=== PATIENT | male | born 1965 | race Caucasian/White ===

== ENCOUNTER 2024-09-01 16:24 | Inpatient (IN) | payer SELFPAY ==
[2024-09-01] VITALS (26 sets, daily range): BP systolic 116–180; BP diastolic 79–110; PULSE 83–107; TEMP 37.6; O2SAT 96–99; BMI 48.8
[2024-09-01 17:28] LABS: Hematocrit 44.9 % (42.0-54.0); Hemoglobin 15.3 g/dL (14.0-18.0); Mean Corpuscular HGB Conc 34.1 g/dL (29.9-35.2); Mean Corpuscular Hemoglobin 30.2 pg (25.9-34.0); Mean Corpuscular Volume 88.6 fL (80.0-94.0); Mean Platelet Volume 8.7 fL (9.5-13.5); Platelet Count 313 10^3/uL (150-450); Red Blood Count 5.07 10^6/uL (4.70-6.10); Red Cell Distribution Width 12.9 % (11.0-15.0); White Blood Count 16.8 10^3/uL (4.0-11.0)
[2024-09-01 17:52] LABS: Lymphocytes Absolute Manual 3.36 10^3/uL (1.20-3.80); Segmented Neut Absolute Manual 12.43 10^3/uL (1.4-6.5)
[2024-09-01 17:54] LABS: Anion Gap 13.8; Carbon Dioxide 24.9 mmol/L (21.0-32.0); Chloride 96 mmol/L (98-107); Estimated GFR (African America >60 (>=60 mL/min/1.73m^2); Estimated GFR (Non-African Ame >60 (>=60 mL/min/1.73m^2); Glucose 116 mg/dL (74-106); Potassium 3.7 mmol/L (3.5-5.1); Sodium 131 mmol/L (136-145)
--- NOTE | 2024-09-01 17:59 | CT_ITS ---
The [address] [address] Patient Name: GEOVANY MONTANA MRN: [id number] date: 1965 Sex: M Assigned Patient Location: ER Current Patient Location: ED.MAIN Accession/Order Number: [id number] Exam Date: 09/01/2024 17:50 Report Date: 09/01/2024 19:57 At the request of: GIGI DELGADO Procedure: CT femur RT w con EXAM: CT femur RT w con HISTORY: abscess, cellulitis thigh COMPARISON: None. TECHNIQUE: Following the uneventful IV administration of nonionic contrast as per protocol institution, axial scans obtained from mid right iliac crest and SI joint through the right femur from hip to knee with coronal and sagittal reformatted images. Reviewed in bone and soft tissue windows. Dose reduction techniques were achieved by using automated exposure control and/or adjustment of mA and/or kV according to patient size and/or use of iterative reconstruction technique. CONTRAST: Omnipaque 300, 100 mL IV. FINDINGS: There is asymmetric skin thickening throughout the upper inner left thigh extending to the mid to distal aspect with underlying subcutaneous edema and inflammatory changes. This is seen at the proximal to distal third of left femur medially. Consistent with cellulitis. No underlying fluid collection or abscess. No gas or air in the soft tissues to suggest necrotizing infection. Correlate with exam. Remaining skin and subcutaneous tissues right pelvis to the knee are otherwise normal. Muscle signal compartments are normal. No enhancing mass. Adequate bone mineralization for age. No fractures. No destructive or lytic or blastic bone process or osteomyelitis. Mild age-related right hip osteoarthritis. No hip joint effusion. There is moderate to severe medial compartment osteoarthritis and joint space loss at knee. Mild degenerative lateral compartment narrowing with tricompartment osteophytes. Patellofemoral joint is preserved. No obvious joint effusion. No right inguinal adenopathy. Other than some colonic diverticulosis noted, imaged intrapelvic structures otherwise negative. CT/CT femur RT w con IMPRESSION: 1. Appearance consistent with cellulitis involving the medial left thigh tissues and skin beginning at the proximal third extending to distal third. 2. No abscess or osteomyelitis or gas within the tissues. Electronically authenticated by: YOEL GALLEGO Date: 09/01/2024 19:57
[2024-09-01] MEDS: HYDROMORPHONE HCL 0.5 MG/0.5 ML SYRINGE IV (18:02)
[2024-09-01] MEDS: LIDOCAINE HCL 1% 100 MG/10 ML MDV INJ (18:02)
[2024-09-01] MEDS: VANCOMYCIN HCL 2,000 MG in 0.9 % SODIUM CHLORIDE 500 ML 250 MG IV (18:14)
--- NOTE | 2024-09-01 20:18 | ED_ITS ---
HPI HPI - General Adult General Chief complaint: Skin/Abscess/Foreign Body Stated complaint: LUMP Time Seen by Provider: 09/01/24 17:06 Source: patient Mode of arrival: walk-in Limitations: no limitations History of Present Illness HPI narrative: 59-year-old male presents to the emergency department with complaint of pain, redness, swelling to the inside of his right thigh. About a month ago, he had a rash to his knee, lower leg, had been on doxycycline for 10 days. This seemed to improve, but then 4 days after, large area of swelling began to the inside of his thigh. Was seen by urgent care yesterday, was told it was MRSA and started him on Bactrim. Today, pain, swelling, redness worse. Reports low-grade fevers. Denies history of diabetes. Has not noted any drainage from the area. Quality:?as above Severity:?moderate Timing:?as above, constant, worsening Context: Normal setting and activity? Modifying factors:?not better despite home meds. Pain worse with palpation Associated symptoms: as above Related Data Home Medications ?Medication ?Instructions ?Recorded ?Confirmed No Known Home Medications 09/01/24 09/01/24 Allergies Allergy/AdvReac Type Severity Reaction Status Date / Time No Known Drug Allergies Allergy Verified 09/01/24 17:34 Opioid HPI Opioid Management Most Recent Opioid Data: Last Pain Scale 8 09/01/24 18:02 09/01/24 Last MAR Pain Assessment 09/01/24 18:02 Review of Systems ROS Narrative CONST: + low grade fever, chills ENDOCRINE: Denies history of diabetes MS: Denies arthralgias, myalgias SKIN: + color change, swelling.? Denies any itching, drainage NEURO: Denies any numbness, tingling PFSH PFSH Social History Little interest or pleasure in doing things: not at all Feeling down, depressed, or hopeless: not at all Exam Narrative Exam Narrative: Vital signs reviewed Nurses notes noted CONST: Nontoxic, well appearing, well nourished, in no distress.? No diaphoresis.?? HENT: normocephalic, atraumatic, moist mucous membrane, no abnormalities of the nose noted, hearing normal EYES: normal appearing conjunctiva, no apparent discharge bilat NECK: normal appearance MS: no edema SKIN: + large area of erythema, swelling, with central induration, hot to touch. Erythema noted from mid thigh from upper to mid thigh and runs medial to posteriorly. No fluctuance, draining. There is a small hole in the central area of this without any purulent exudate contained within NEURO: A&Ox 3 PSYCH: normal mood, affect Constitutional Vital Signs, click to edit/add: Last Vital Signs Temp 99.6 F 09/01/24 16:30 Pulse 107 H 09/01/24 16:30 Resp 20 09/01/24 16:30 BP 153/84 H 09/01/24 19:00 Pulse Ox 98 09/01/24 16:30 O2 Del Method Room Air 09/01/24 16:30 Course Consultations Consultation #1: Patient discussed with KAYLEY Hyman who is agreeable with admission under Dr. Hartmann Time: 20:19 Vital Signs Vital signs: Vital Signs Temperature 99.6 F 09/01/24 16:30 Pulse Rate 107 H 09/01/24 16:30 Respiratory Rate 20 09/01/24 16:30 Blood Pressure 180/110 H 09/01/24 16:30 Pulse Oximetry 98 09/01/24 16:30 Oxygen Delivery Method Room Air 09/01/24 16:30 Temperature 99.6 F 09/01/24 16:30 Pulse Rate 107 H 09/01/24 16:30 Respiratory Rate 20 09/01/24 16:30 Blood Pressure 153/84 H 09/01/24 19:00 Pulse Oximetry 98 09/01/24 16:30 Oxygen Delivery Method Room Air 09/01/24 16:30 Medical Decision Making [facility] Narrative Medical decision making narrative: This is a pleasant 59-year-old male presented to the emergency department with complaint of redness, pain, swelling to the inside of his right thigh. He has been on doxycycline, Bactrim over time course. Despite this, symptoms continue to worsen. Has had low-grade fevers, chills. On arrival, febrile vital signs are stable. On exam, nontoxic, well-appearing patient in no distress. He had a large as large area of erythema from anterior to medial to posterior thigh with central area of induration. No fluctuance or pointing is noted. IV access established, bloods drawn. Patient started on vancomycin and later Zosyn. Labs reveal white blood cell count of 16,000. No anemia, thrombocytopenia, electrolyte imbalance, renal impairment. Glucose 116. CT imaging, per radiologist reveals cellulitis without evidence of abscess Favor cellulitis, leukocytosis Abscess, osteomyelitis less likely based on imaging History and record review Additional records reviewed: No prior records Next line management Independent interpretation: Imaging: CT right thigh reveals marbling of the inside soft tissue of the thigh consistent with cellulitis. No abscess noted reevaluation: Pain improved Disposition ? Plan: Patient will be admitted. Condition at time of disposition: stable ? PLEASE NOTE: Portions of the medical record may have been produced using electronic food storeroom clerk and may contain errors with respect to translation of words which may not have been identified prior to finalization of the chart. Medical Records Medical records reviewed: Yes I reviewed the patient's medical records Lab Data Lab results reviewed: Yes I reviewed the patient's lab results Labs: Lab Results 09/01/24 Range/Units 17:18 WBC 16.8 H (4.0-11.0) 10^3/uL RBC 5.07 (4.70-6.10) 10^6/uL Hgb 15.3 (14.0-18.0) g/dL Hct 44.9 (42.0-54.0) % MCV 88.6 (80.0-94.0) fL MCH 30.2 (25.9-34.0) pg MCHC 34.1 (29.9-35.2) g/dL RDW 12.9 (11.0-15.0) % Plt Count 313 (150-450) 10^3/uL MPV 8.7 L (9.5-13.5) fL Seg Neuts % (Manual) 74.0 (43.0-75.0) Lymphocytes % (Manual) 20.0 L (20.5-60.0) % Monocytes % (Manual) 6.0 (1.7-12.0) % Eosinophils % (Manual) 0.0 L (0.9-7.0) % Basophils % (Manual) 0.0 L (0.2-2.0) % Neutrophils # (Manual) 12.43 H (1.4-6.5) 10^3/uL Lymphocytes # (Manual) 3.36 (1.20-3.80) 10^3/uL Monocytes # (Manual) 1.00 H (0.30-0.80) 10^3/uL Eosinophils # (Manual) 0.00 (0.00-0.70) 10^3/uL Basophils # (Manual) 0.00 (0.00-0.10) 10^3/uL Sodium 131 L (136-145) mmol/L Potassium 3.7 (3.5-5.1) mmol/L Chloride 96 L (98-107) mmol/L Carbon Dioxide 24.9 (21.0-32.0) mmol/L Anion Gap 13.8 BUN 13.0 (7.0-18.0) mg/dL Creatinine 1.18 (0.70-1.30) mg/dL Est GFR ( Amer) >60 (>=60 mL/min/1.73m^2) Est GFR (Non-Af Amer) >60 (>=60 mL/min/1.73m^2) BUN/Creatinine Ratio 11.0 Glucose 116 H (74-106) mg/dL Calcium 9.0 (8.5-10.1) mg/dL Imaging Data CT right thihg: Radiologist's impression: ITS Impressions Femur CT 09/01/24 17:59 IMPRESSION: 1. Appearance consistent with cellulitis involving the medial left thigh tissues and skin beginning at the proximal third extending to distal third. 2. No abscess or osteomyelitis or gas within the tissues. Electronically authenticated by: YOEL GALLEGO Date: 09/01/2024 19:57 Discharge Plan Discharge Chief Complaint: Skin/Abscess/Foreign Body Clinical Impression: Acute pain of right thigh Cellulitis Qualifiers: Site of cellulitis: extremity Site of cellulitis of extremity: lower extremity Laterality: right Qualified Code(s): L03.115 - Cellulitis of right lower limb Leukocytosis Qualifiers: Leukocytosis type: unspecified Qualified Code(s): D72.829 - Elevated white blood cell count, unspecified Patient Disposition: Admitted as Observation Time of Disposition Decision: 20:15 Condition: Good
[2024-09-01] MEDS: PIPERACILLIN SODIUM/TAZOBACTAM 3.375 GM in 0.9 % SODIUM CHLORIDE 50 ML IV (21:52)
[2024-09-01] MEDS: OXYCODONE HCL/ACETAMINOPHEN 5MG/325MG 2 TAB PO (22:04)
[2024-09-02] VITALS (31 sets, daily range): BP systolic 114–140; BP diastolic 72–90; PULSE 73–100; TEMP 36.7–37.2; O2SAT 92–96; BMI 49.7
[2024-09-02] MEDS: PIPERACILLIN SODIUM/TAZOBACTAM 3.375 GM in 0.9 % SODIUM CHLORIDE 50 ML IV ×3 (04:02→19:51)
[2024-09-02 05:37] LABS: Basophils Absolute Auto 0.1 10^3/uL (0.0-0.1); Basophils Percent Auto 0.4 % (0.2-2.0); Eosinophils Absolute Auto 0.1 10^3/uL (0.0-0.7); Eosinophils Percent Auto 0.9 % (0.9-7.0); Hematocrit 42.1 % (42.0-54.0); Hemoglobin 14.1 g/dL (14.0-18.0); Immature Granulocytes Pct Auto 0.7 % (0.0-0.5); Lymphocytes Absolute Auto 2.3 10^3/uL (1.2-3.8); Lymphocytes Percent Auto 16.1 % (20.5-60.0); Mean Corpuscular HGB Conc 33.5 g/dL (29.9-35.2); Mean Corpuscular Hemoglobin 30.1 pg (25.9-34.0); Mean Platelet Volume 9.1 fL (9.5-13.5); Monocytes Absolute Auto 1.8 10^3/uL (0.3-0.8); Monocytes Percent Auto 12.4 % (1.7-12.0); Neutrophils Absolute Auto 9.8 10^3/uL (1.4-6.5); Neutrophils Percent Auto 69.5 % (43.0-75.0); Platelet Count 301 10^3/uL (150-450); Red Blood Count 4.68 10^6/uL (4.70-6.10); Red Cell Distribution Width 13.1 % (11.0-15.0); White Blood Count 14.1 10^3/uL (4.0-11.0)
[2024-09-02 06:03] LABS: Alanine Aminotransferase 29 U/L (16-63); Albumin Globulin Ratio 0.7; Albumin Level 3.1 g/dL (3.4-5.0); Alkaline Phosphatase 78 U/L (46-116); Anion Gap 11.9; Aspartate Amino Transferase 16 U/L (15-37); BUN Creatinine Ratio 11.6; Bilirubin Total 0.7 mg/dL (0.2-1.0); Calcium 8.7 mg/dL (8.5-10.1); Carbon Dioxide 28.3 mmol/L (21.0-32.0); Chloride 99 mmol/L (98-107); Estimated GFR (African America >60 (>=60 mL/min/1.73m^2); Estimated GFR (Non-African Ame >60 (>=60 mL/min/1.73m^2); Globulin 4.6 g/dL; Glucose 100 mg/dL (74-106); Magnesium 2.1 mg/dL (1.8-2.4); Potassium 4.2 mmol/L (3.5-5.1); Sodium 135 mmol/L (136-145); Total Protein 7.7 g/dL (6.4-8.2)
[2024-09-02] MEDS: VANCOMYCIN HCL 2,000 MG in 0.9 % SODIUM CHLORIDE 500 ML 250 MG IV ×2 (08:08→21:05)
[2024-09-02] MEDS: OXYCODONE HCL/ACETAMINOPHEN 5MG/325MG 2 TAB PO ×3 (08:14→19:51)
[2024-09-02] MEDS: ENOXAPARIN SODIUM 40 MG/0.4 ML SYRINGE SUBQ (11:02)
--- NOTE | 2024-09-02 11:55 | PM.HP ---
HPI H&P: HPI History of Present Illness Chief complaint: LUMP, CELLULITIS R THIGH LEUKOCYTOSIS Narrative: 59-year-old male presented to ED with left pain/erythema and tenderness of his right medical thigh. He reports he had small area of swelling/pain that opened up by itself with purulent discharge on his medial thigh. He saw urgent care for it and was prescribed oral Bactrim for it. But yesterday, his RLE blew up red with area of erythema/induration increased to about 8x8 inch. Patient reports that pain was so severe that he could hardly walk. He also reports subjective fevers/chills. Denies nausea, vomiting. Started on broad spectrum abx in ED. He is hemodynamically stable and feels that percocet is helping with pain. Opioid HPI Opioid Management Most Recent Pain and Opioid Data: Last Pain Scale 0 09/02/24 10:15 09/02/24 Last Pain Assessment 09/02/24 11:16 Last MAR Pain Assessment 09/02/24 08:14 Last ORT Total Score 6 09/02/24 11:16 09/02/24 Last ORT Risk Category Moderate Risk 09/02/24 11:16 09/02/24 Review of Systems ROS Status of ROS 10 or more systems reviewed and unremarkable except as noted in history and below PFSH PFSH Family History (Updated 09/02/24 @ 11:58 by Kae Bobby) Father Family history of COPD (chronic obstructive pulmonary disease) Social History (Updated 09/02/24 @ 11:55 by Shaikh Mary Kate MD) Within the past year, how often did you have a drink containing alcohol: never Within the past year, how many standard drinks containing alcohol did you have on a typical day: 1 or 2 Within the past year, how often did you have six or more drinks on one occasion: never Total score: 0 Score interpretation: A score less than 4 is consistent with normal alcohol consumption. Smoking status: Never smoker Non-prescribed substance use: denies use Previous occupational history: insurance case manager. Known occupational exposures/hazards: No Highest level of school completed/degree received: high school graduate Are you now , , , , never or living with a partner: In a typical week, how many times do you talk on the telephone with family, friends, or neighbors: 3 or more times per week How often do you get together with friends or relatives: 3 or more times per week How often do you attend latter day or restorationism services: never Do you belong to any clubs or organizations such as latter day groups unions, fraternal or athletic groups, or school groups: no Total score: 1 Score interpretation: A score of less than or equal to 1 indicates the most socially isolated. Little interest or pleasure in doing things: not at all Feeling down, depressed, or hopeless: not at all Feel stressed/tense/nervous/anxious/difficulty sleeping: not at all Due to disability, difficulty making decisions: No Do you think of yourself as: straight/heterosexual Gender Identity: male Meds Home Medications and Allergies Home Medications ?Medication ?Instructions ?Recorded ?Confirmed ?Type No Known Home Medications 09/01/24 09/01/24 History Allergies Allergy/AdvReac Type Severity Reaction Status Date / Time No Known Drug Allergies Allergy Verified 09/01/24 17:34 Exam Constitutional Vital Signs, click to edit/add: Last Vital Signs Temp 98.9 F 09/02/24 10:15 Pulse 76 09/02/24 10:15 Resp 16 09/02/24 10:15 BP 120/72 09/02/24 10:15 Pulse Ox 95 09/02/24 11:54 O2 Del Method Room Air 09/02/24 11:54 Documenting provider has reviewed patient's vital signs: yes Common normals: no apparent distress and oriented x3 General appearance: cooperative Nutritional appearance: obese HENMT Common normals: normocephalic and head/scalp atraumatic Head and scalp: normocephalic and atraumatic Eye Common normals: conjunctivae normal and no scleral icterus Conjunctiva: conjunctiva(e) normal Respiratory Common normals: normal respiratory effort and clear to auscultation bilaterally Effort & inspection: able to speak in complete sentences Auscultation: clear to auscultation bilaterally Cardio Common normals: regular rate, S1 normal heart sound and S2 normal heart sound Rate: regular rate Heart sounds: S1 normal and S2 normal GI Common normals: Normal to inspection, nondistended, normoactive bowel sounds present, soft to palpation, non-tender and no hepatosplenomegaly Palpation: soft and no hepatosplenomegaly Extremity Other: Area of erythema, induration -right medial thigh. About 8x8 inch, discrete margins. Small area of dried up purulence medically for ruptured abscess. Neuro Common normals: oriented x3, moves all extremities and no focal motor deficits Psych Common normals: mental status grossly normal, denies hallucinations, denies homicidal ideation and denies suicidal ideation Results Labs Labs: Short CBC 09/01/24 09/02/24 Range/Units 17:18 04:20 WBC 16.8 H 14.1 H (4.0-11.0) 10^3/uL Hgb 15.3 14.1 (14.0-18.0) g/dL Hct 44.9 42.1 (42.0-54.0) % Plt Count 313 301 (150-450) 10^3/uL BMP 09/01/24 09/02/24 17:18 04:20 Sodium 131 L 135 L Potassium 3.7 4.2 Chloride 96 L 99 Carbon Dioxide 24.9 28.3 BUN 13.0 13.0 Creatinine 1.18 1.12 Glucose 116 H 100 Calcium 9.0 8.7 Liver Function 09/02/24 Range/Units 04:20 Total Bilirubin 0.7 (0.2-1.0) mg/dL AST 16 (15-37) U/L ALT 29 (16-63) U/L Alkaline Phosphatase 78 (46-116) U/L Albumin 3.1 L (3.4-5.0) g/dL Assessment and Plan Assessment and Plan (1) Cellulitis: Qualifiers: Laterality: right Site of cellulitis: extremity Site of cellulitis of extremity: lower extremity Qualified Code(s): L03.115 - Cellulitis of right lower limb (2) Leukocytosis: Qualifiers: Leukocytosis type: unspecified Qualified Code(s): D72.829 - Elevated white blood cell count, unspecified Plan Large area involved with leukocytosis and pain. Started on IV abx - vancomycin/zosyn. Failed outpatient oral abx - was on Bactrim. F/u cultures. C/w combination of oral/IV narcotics for pain. Started on IV Toradol to help with skin inflammation/pain.
[2024-09-02] MEDS: KETOROLAC TROMETHAMINE 30 MG/ML VIAL 15 MG IVP ×2 (12:45→18:27)
--- NOTE | 2024-09-02 13:05 | DIETREC ---
Recommend prostat @ 30 ml bid po for progressive wound healing
--- NOTE | 2024-09-02 20:01 | PC.NURSE ---
Redness within markings. Wound dressed with telfa, 4x4 dressing and wrapped with kerlex.
[2024-09-03] VITALS (16 sets, daily range): BP systolic 119–137; BP diastolic 71–86; PULSE 67–81; TEMP 36.4–36.9; O2SAT 92–96
[2024-09-03] MEDS: KETOROLAC TROMETHAMINE 30 MG/ML VIAL 15 MG IVP ×5 (01:10→23:34)
[2024-09-03] MEDS: PIPERACILLIN SODIUM/TAZOBACTAM 3.375 GM in 0.9 % SODIUM CHLORIDE 50 ML IV ×3 (03:44→23:33)
[2024-09-03] MEDS: OXYCODONE HCL/ACETAMINOPHEN 5MG/325MG 2 TAB PO ×3 (03:48→21:22)
[2024-09-03 07:22] LABS: Basophils Absolute Auto 0.1 10^3/uL (0.0-0.1); Basophils Percent Auto 0.6 % (0.2-2.0); Eosinophils Absolute Auto 0.3 10^3/uL (0.0-0.7); Eosinophils Percent Auto 2.6 % (0.9-7.0); Hematocrit 41.8 % (42.0-54.0); Immature Granulocytes Abs Auto 0.07 10^3/uL (0.00-0.03); Immature Granulocytes Pct Auto 0.7 % (0.0-0.5); Lymphocytes Absolute Auto 1.5 10^3/uL (1.2-3.8); Lymphocytes Percent Auto 15.6 % (20.5-60.0); Mean Corpuscular HGB Conc 33.5 g/dL (29.9-35.2); Mean Corpuscular Volume 89.7 fL (80.0-94.0); Mean Platelet Volume 8.8 fL (9.5-13.5); Monocytes Percent Auto 10.5 % (1.7-12.0); Neutrophils Absolute Auto 6.7 10^3/uL (1.4-6.5); Platelet Count 314 10^3/uL (150-450); Red Blood Count 4.66 10^6/uL (4.70-6.10); Red Cell Distribution Width 13.1 % (11.0-15.0); White Blood Count 9.5 10^3/uL (4.0-11.0)
[2024-09-03 07:37] LABS: Alanine Aminotransferase 28 U/L (16-63); Albumin Globulin Ratio 0.8; Albumin Level 2.8 g/dL (3.4-5.0); Alkaline Phosphatase 69 U/L (46-116); Anion Gap 13.6; Aspartate Amino Transferase 18 U/L (15-37); BUN Creatinine Ratio 21.1; Bilirubin Total 0.4 mg/dL (0.2-1.0); Calcium 8.7 mg/dL (8.5-10.1); Carbon Dioxide 25.6 mmol/L (21.0-32.0); Chloride 104 mmol/L (98-107); Estimated GFR (African America >60 (>=60 mL/min/1.73m^2); Estimated GFR (Non-African Ame >60 (>=60 mL/min/1.73m^2); Globulin 3.6 g/dL; Glucose 97 mg/dL (74-106); Potassium 4.2 mmol/L (3.5-5.1); Sodium 139 mmol/L (136-145); Total Protein 6.4 g/dL (6.4-8.2)
[2024-09-03] MEDS: VANCOMYCIN HCL 2,000 MG in 0.9 % SODIUM CHLORIDE 500 ML 250 MG IV (08:15)
[2024-09-03] MEDS: ENOXAPARIN SODIUM 40 MG/0.4 ML SYRINGE SUBQ (08:19)
--- NOTE | 2024-09-03 10:04 | P.IMPN_ITS ---
Progress Note: A&P Assessment and Plan (1) Abscess and cellulitis of gluteal region: Assessment and Plan: Bedside I&D, copious rama pus expressed. No noticeable improvement in erythema/induration or pain. C/w IV abx. F/u cultures. (2) Leukocytosis: Assessment and Plan: Resolved. Qualifiers: Leukocytosis type: unspecified Qualified Code(s): D72.829 - Elevated white blood cell count, unspecified Plan C/w IV abx. F/u cultures. No improvement, but hopefully he will start to improve after I&D Patient changed to inpatient, as he has not improved after an initial period of observation, treatment with IV abx and will require continued monitoring and treatment. Internal Medicine - PN: Subj Subjective Interval history: Seen and examined. Patient reports last night his abscess opended up and was draining considerably. He reports pain/tenderness and more or less no improvement since yesterday, while on IV abx. Exam Constitutional Vital Signs, click to edit/add: Last Vital Signs Temp 98.4 F 09/03/24 08:23 Pulse 77 09/03/24 09:53 Resp 20 09/03/24 08:23 BP 126/71 09/03/24 08:23 Pulse Ox 95 09/03/24 09:40 O2 Del Method Room Air 09/03/24 09:40 Documenting provider has reviewed patient's vital signs: yes Common normals: no apparent distress and oriented x3 General appearance: cooperative Nutritional appearance: obese Respiratory Common normals: normal respiratory effort and clear to auscultation bilaterally Effort & inspection: able to speak in complete sentences Auscultation: clear to auscultation bilaterally Cardio Common normals: regular rate, S1 normal heart sound and S2 normal heart sound Rate: regular rate Heart sounds: S1 normal and S2 normal Extremity Other: Area of erythema, induration -right medial thigh. About 8x8 inch, discrete margins.Area of fluctuance noted with copious purulent drainage medially. Bedside i&d performed with about 10 ml purulent discharge expressed. Area packed. Neuro Common normals: oriented x3, moves all extremities and no focal motor deficits Psych Common normals: mental status grossly normal, denies hallucinations, denies homicidal ideation and denies suicidal ideation Internal Medicine - PN: Obj Da Labs Labs: Laboratory Results - last 24 hr 09/03/24 09/03/24 05:26 07:09 WBC 9.5 RBC 4.66 L Hgb 14.0 Hct 41.8 L MCV 89.7 MCH 30.0 MCHC 33.5 RDW 13.1 Plt Count 314 MPV 8.8 L Neut % (Auto) 70.0 Lymph % (Auto) 15.6 L [place] % (Auto) 10.5 Eos % (Auto) 2.6 Baso % (Auto) 0.6 Neut # (Auto) 6.7 H Lymph # (Auto) 1.5 [place] # (Auto) 1.0 H Eos # (Auto) 0.3 Baso # (Auto) 0.1 Abs Immat Gran (auto) 0.07 H Imm/Tot Granulo (auto) 0.7 H Sodium 139 Potassium 4.2 Chloride 104 Carbon Dioxide 25.6 Anion Gap 13.6 BUN 23.0 H Creatinine 1.09 Est GFR ( Amer) >60 Est GFR (Non-Af Amer) >60 BUN/Creatinine Ratio 21.1 Glucose 97 Calcium 8.7 Total Bilirubin 0.4 AST 18 ALT 28 Alkaline Phosphatase 69 Total Protein 6.4 Albumin 2.8 L Globulin 3.6 Albumin/Globulin Ratio 0.8 Vancomycin Trough 15.0
--- NOTE | 2024-09-03 10:43 | CM.NOTE ---
Rounds made with Dr. snyder, pt continues to c/o pain to upper thigh. Area continues with redness and firm, Dr. Snyder lanced area for drainage at bedside. Cleansed site with Betadine prior to procedure and cleansed with Betadine and saline post, covered with ABD drsg. Purulent drainage after area lanced.
--- NOTE | 2024-09-03 10:48 | CM.NOTE ---
Dr. Hartmann will change pt to inpatient status d/t no improvement in cellulitis and need for confined IV antibiotics and I&D at bedside.
--- NOTE | 2024-09-03 11:27 | DIETREC ---
Recommend Ensure 1 container daily po for home going. Discussed with Shyam at bedside.
[2024-09-03] MEDS: VANCOMYCIN HCL 1,750 MG in 0.9 % SODIUM CHLORIDE 500 ML 250 MG IV (21:20)
[2024-09-04 04:50] VITALS: O2SAT 94
[2024-09-04] MEDS: PIPERACILLIN SODIUM/TAZOBACTAM 3.375 GM in 0.9 % SODIUM CHLORIDE 50 ML IV (06:03)
[2024-09-04] MEDS: KETOROLAC TROMETHAMINE 30 MG/ML VIAL 15 MG IVP ×2 (06:03→11:53)
[2024-09-04 06:54] VITALS: BP 138/86; PULSE 79; TEMP 37.1; O2SAT 95
[2024-09-04] MEDS: ENOXAPARIN SODIUM 40 MG/0.4 ML SYRINGE SUBQ (09:01)
[2024-09-04] MEDS: DOCUSATE SODIUM 100 MG CAPSULE PO (09:01)
[2024-09-04] MEDS: VANCOMYCIN HCL 1,750 MG in 0.9 % SODIUM CHLORIDE 500 ML 250 MG IV (10:03)
--- NOTE | 2024-09-04 11:28 | P.PN_ITS ---
Progress Note: Subjective Subjective Interval history: Still getting moderate drainage out of wound Exam Constitutional Vital Signs, click to edit/add: Last Vital Signs Temp 98.7 F 09/04/24 06:54 Pulse 79 09/04/24 06:54 Resp 16 09/04/24 06:54 BP 138/86 09/04/24 06:54 Pulse Ox 95 09/04/24 06:54 O2 Del Method Room Air 09/04/24 06:54 Documenting provider has reviewed patient's vital signs: yes Common normals: no apparent distress and oriented x3 General appearance: cooperative Nutritional appearance: obese Respiratory Common normals: normal respiratory effort and clear to auscultation bilaterally Effort & inspection: able to speak in complete sentences Auscultation: clear to auscultation bilaterally Cardio Common normals: regular rate, S1 normal heart sound and S2 normal heart sound Rate: regular rate Heart sounds: S1 normal and S2 normal Extremity Other: Area of erythema, induration -right medial thigh. About 8x8 inch, discrete margins.Area of fluctuance noted with copious purulent drainage medially. Erythema appears to be spread outside the line of demarcation Neuro Common normals: oriented x3, moves all extremities and no focal motor deficits Psych Common normals: mental status grossly normal, denies hallucinations, denies homicidal ideation and denies suicidal ideation Progress Note: A&P Assessment and Plan (1) Abscess and cellulitis of gluteal region: (2) Leukocytosis: Qualifiers: Leukocytosis type: unspecified Qualified Code(s): D72.829 - Elevated white blood cell count, unspecified Plan Abscess and cellulitis of gluteal region: Cultures pending, erythema appears to be spread outside the line of demarcation, white blood cell count is improving, still with moderate drainage, cultures pending again check on later today Leukocytosis:-Improved likely secondary to the above Iron deficiency anemia-monitor daily Admission criteria: Patient with large abscess, still draining moderate drainage, area outside the line of demarcation, unable to send home on current antibiotic regime, medically necessary treatment will span 2 midnights. Inpatient status.
[2024-09-04 11:33] VITALS: O2SAT 96
[2024-09-04 11:37] LABS: Basophils Absolute Auto 0.1 10^3/uL (0.0-0.1); Basophils Percent Auto 0.8 % (0.2-2.0); Eosinophils Absolute Auto 0.3 10^3/uL (0.0-0.7); Eosinophils Percent Auto 4.2 % (0.9-7.0); Hematocrit 41.1 % (42.0-54.0); Hemoglobin 13.4 g/dL (14.0-18.0); Immature Granulocytes Pct Auto 1.5 % (0.0-0.5); Lymphocytes Absolute Auto 1.4 10^3/uL (1.2-3.8); Lymphocytes Percent Auto 20.6 % (20.5-60.0); Mean Corpuscular HGB Conc 32.6 g/dL (29.9-35.2); Mean Corpuscular Hemoglobin 29.5 pg (25.9-34.0); Mean Corpuscular Volume 90.5 fL (80.0-94.0); Mean Platelet Volume 8.8 fL (9.5-13.5); Monocytes Absolute Auto 0.7 10^3/uL (0.3-0.8); Monocytes Percent Auto 9.8 % (1.7-12.0); Neutrophils Absolute Auto 4.2 10^3/uL (1.4-6.5); Neutrophils Percent Auto 63.1 % (43.0-75.0); Platelet Count 321 10^3/uL (150-450); Red Blood Count 4.54 10^6/uL (4.70-6.10); Red Cell Distribution Width 12.9 % (11.0-15.0); White Blood Count 6.6 10^3/uL (4.0-11.0)
[2024-09-04 11:48] LABS: Anion Gap 12.3; BUN Creatinine Ratio 15.9; Calcium 8.8 mg/dL (8.5-10.1); Carbon Dioxide 26.8 mmol/L (21.0-32.0); Chloride 103 mmol/L (98-107); Estimated GFR (African America >60 (>=60 mL/min/1.73m^2); Estimated GFR (Non-African Ame >60 (>=60 mL/min/1.73m^2); Glucose 104 mg/dL (74-106); Potassium 4.1 mmol/L (3.5-5.1); Sodium 138 mmol/L (136-145)
[2024-09-04] MEDS: DIPHENHYDRAMINE HCL 50 MG/ML VIAL 25 MG IV (11:53)
[2024-09-04] MEDS: LACTULOSE 10 GM/15 ML UD CUP 30 GM PO (11:53)
[2024-09-04] MEDS: POLYETHYLENE GLYCOL 3350 17 GM POWDER PACKET PO (11:59)
[2024-09-04] MEDS: TRIAMCINOLONE ACETONIDE 0.1% CREAM 15 GM TUBE 1 APPLIC TOPICAL (13:31)
--- NOTE | 2024-09-04 13:52 | P.DS_ITS ---
DS: Providers Provider Date of admission: 09/03/24 10:10 Primary care physician: Non-Staff Physician, DS: Diagnosis Discharge Diagnosis (1) Abscess and cellulitis of gluteal region: (2) Leukocytosis: Qualifiers: Leukocytosis type: unspecified Qualified Code(s): D72.829 - Elevated white blood cell count, unspecified Plan Abscess and cellulitis of gluteal region: Cultures pending, erythema appears to be spread outside the line of demarcation, white blood cell count is improving, still with moderate drainage, cultures pending again check on later today Leukocytosis:-Improved likely secondary to the above Iron deficiency anemia-monitor daily Admission criteria: Patient with large abscess, still draining moderate drainage, area outside the line of demarcation, unable to send home on current antibiotic regime, medically necessary treatment will span 2 midnights. Inpatient status. ? DS: Summary Hospital Course Hospital Course: Patient was admitted secondary to abscess in the left lower groin area. This was I&D, erythema is persisting, seems to be slightly outside the line of demarcation, patient would like to try his medically therapy at home with oral antibiotics, recommended trying to replace his IV. With the erythema outside of the line of demarcation he could still benefit from IV therapy, will discharge patient to home with instructions that if it looks any worse at all starts having increasing drainage or pain or fevers he needs to represent to the emergency room. Medication status. Follow-up with his PCP next week. Status at Discharge Overall status at discharge: patient is not back to baseline Time Spent with Patient Time attestation: Total time spent providing and/or coordinating discharge services: Time spent: greater than 30 minutes Exam Constitutional Vital Signs, click to edit/add: Last Vital Signs Temp 98.7 F 09/04/24 06:54 Pulse 79 09/04/24 06:54 Resp 16 09/04/24 06:54 BP 138/86 09/04/24 06:54 Pulse Ox 96 09/04/24 11:33 O2 Del Method Room Air 09/04/24 11:33 Documenting provider has reviewed patient's vital signs: yes Common normals: no apparent distress and oriented x3 General appearance: cooperative Nutritional appearance: obese Respiratory Common normals: normal respiratory effort and clear to auscultation bilaterally Effort & inspection: able to speak in complete sentences Auscultation: clear to auscultation bilaterally Cardio Common normals: regular rate, S1 normal heart sound and S2 normal heart sound Rate: regular rate Heart sounds: S1 normal and S2 normal Extremity Other: Area of erythema, induration -right medial thigh. About 8x8 inch, discrete margins.Area of fluctuance noted with copious purulent drainage medially. Erythema appears to be spread outside the line of demarcation Neuro Common normals: oriented x3, moves all extremities and no focal motor deficits Psych Common normals: mental status grossly normal, denies hallucinations, denies homicidal ideation and denies suicidal ideation DS: Data Data Completed and Pending Labs on day of discharge: Labs from last 24 hours 09/04/24 11:26 WBC 6.6 RBC 4.54 L Hgb 13.4 L Hct 41.1 L MCV 90.5 MCH 29.5 MCHC 32.6 RDW 12.9 Plt Count 321 MPV 8.8 L Neut % (Auto) 63.1 Lymph % (Auto) 20.6 Banner % (Auto) 9.8 Eos % (Auto) 4.2 Baso % (Auto) 0.8 Neut # (Auto) 4.2 Lymph # (Auto) 1.4 Banner # (Auto) 0.7 Eos # (Auto) 0.3 Baso # (Auto) 0.1 Abs Immat Gran (auto) 0.10 H Imm/Tot Granulo (auto) 1.5 H Sodium 138 Potassium 4.1 Chloride 103 Carbon Dioxide 26.8 Anion Gap 12.3 BUN 17.0 Creatinine 1.07 Est GFR ( Amer) >60 Est GFR (Non-Af Amer) >60 BUN/Creatinine Ratio 15.9 Glucose 104 Calcium 8.8 Discharge Plan Discharge Disposition: Home, Self-Care Condition: Good Discharge Medications: New doxycycline hyclate 100 mg capsule 100 mg PO BID 21 Days Qty: 42 0RF doxycycline monohydrate 100 mg capsule 100 mg PO BID 21 Days Qty: 42 0RF ciprofloxacin HCl [Cipro] 500 mg tablet 500 mg PO BID Qty: 42 0RF Print Language: Polish Forms: Portal Instructions
--- NOTE | 2024-09-07 14:44 | CM.DCFOLLOWU ---
Person spoke with:patient How are you feeling? pretty good How is your pain? some secondary swelling, not much pain Did you understand your discharge instructions?yes Do you have any questions about your discharge instructions?no Were you given any prescriptions at discharge?yes Were you able to get your prescriptions filled?yes Do you understand how to take your medications as ordered?yes Do you have any questions about your follow up appointment and do you plan to keep your follow up appointment? no questions, Pt has no PCP, provided with Dr. Brice and Esther Leiva office number Is there anything else that you would like to discuss?no Questions/Comments/Concerns/Other:none
== END 2024-09-04 14:32 | disposition home or self-care (01) | DRG 603 ==
LOC: ER 23:31 → MS 09-02 09:55
PROVIDERS: Physician Assistant; Registered Nurse; Admitting Provider Family Medicine; Emergency Provider Emergency Medicine; Visit Provider Internal Medicine
DX: L02.31 Cutaneous abscess of buttock (principal); L03.115 Cellulitis of right lower limb; Z68.42 Body mass index [BMI] 45.0-49.9, adult; L03.317 Cellulitis of buttock; M79.651 Pain in right thigh; D72.829 Elevated white blood cell count, unspecified; D50.9 Iron deficiency anemia, unspecified; E66.9 Obesity, unspecified; B95.62 Methicillin resistant Staphylococcus aureus infection as the cause of diseases classified elsewhere
CPT/HCPCS: 36415; 73701; 80048; 80053; 80202; 83735; 85007; 85025; 85027; 87070; 87075; 87150; 87186; 94761; 96365; 96366; 96367; 96375; 99285; G0378; J1171; J1200; J1650; J1885; J2543; J3370; Q9967